=== PATIENT | female | born 1945 | race Caucasian/White ===

== ENCOUNTER 2024-05-02 12:42 | Inpatient (IN) | payer MEDICARE, BC, SELFPAY ==
[2024-04-30 20:22] VITALS: BP 186/85; BMI 31.7
[2024-04-30 20:37] LABS: % Basophils 0.5 % (0-2); % Eosinophils 0.8 % (0-6); % Immature Granulocytes 0.3 % (0-0.5); % Lymphocytes 25.8 % (20.5-51.1); % Monocytes 4.9 % (1.7-9.3); % Neutrophils 67.7 % (42.2-75.2); Absolute Basophils 0.1 10^3/uL (0-0.2); Absolute Eosinophils 0.1 10^3/uL (0-0.7); Absolute Lymphocytes 2.8 10^3/uL (1.2-3.4); Absolute Monocytes 0.5 10^3/uL (0.1-0.6); Absolute Neutrophils 7.4 10^3/uL (1.4-6.5); Hematocrit 44.5 % (37.0-47.0); Hemoglobin 15.3 g/dL (12.0-16.0); Mean Corp Hgb Conc. 34.4 g/dL (33.0-37.0); Mean Corpuscular Hgb 29.4 pg (27.0-31.0); Mean Corpuscular Volume 85.6 fL (81.0-99.0); Mean Platelet Volume 9.4 fL (7.4-10.4); Nucleated Red Blood Cells % 0 %; Platelet Count 230 10^3/uL (130-400); Red Cell Dist. Width 12.8 % (11.5-14.5); White Blood Cell Count 10.9 10^3/uL (4.8-10.8)
[2024-04-30 20:58] LABS: Blood Urea Nitrogen 15 mg/dl (7-17); Calcium 9.4 mg/dl (8.4-10.2); Carbon Dioxide 24 mmol/L (22-30); Chloride 103 mmol/L (98-107); Estimated Creatinine Clearance 47 ml/min; Glucose 139 mg/dl (70-99); Sodium 135 mmol/L (135-145); eGFR > 60.00
[2024-04-30 21:00] VITALS: BP 164/70
--- NOTE | 2024-04-30 21:34 | ED.GENMED ---
History of Present Illness
<Rosio Jones PA-C - Last Filed: 05/01/24 19:30>
General
Chief Complaint: Abdominal Symptoms
Source: patient
Exam Limitations: none
Time Seen by Provider: 04/30/24 21:31
Nursing documentation reviewed up to this point in time: agreed with
History of Present Illness
History of Present Illness:
Patient is an 79-year-old female presenting to the emergency department via EMS due to acute onset nausea and vomiting after dinner this evening. Patient was eating dinner with her daughter and and approximately 5 minutes after the meal
patient started having severe nausea and multiple episodes of vomiting with some associated dizziness. Patient also states that she has had felt unsteady on her feet over the past few days and as if she needed to hold onto conley. Patient's
did not notice any obvious unsteady gait. Patient denies any fevers, chills, abdominal pain, constipation. Patient denies any associated chest pain or shortness of breath. Patient denies any headache.
However�patient does report that she notices intermittently that after meals she has nausea, vomiting, and occasional diarrhea.
Patient does report that she has been under a increased amount of stress recently and is unsure if this may be contributing to symptoms. Patient denies any history of cardiac disease.
Patient lives in [place] and is visiting family currently.
Past History
<Rosio Jones PA-C - Last Filed: 05/01/24 19:30>
Past History
ED Past Medical History: None
ED Past Surgical History: Other (Patient has had moles surgery on the face 5 years ago)
Social History
Personal:
Living: with family
Employment: Retired
Review of Systems
<Rosio Jones PA-C - Last Filed: 05/01/24 19:30>
Review of Systems
Allergies reviewed?: Yes
All Other Systems: ROS reviewed and negative except as documented in HPI and ROS
Phy Exam
<Rosio Jones PA-C - Last Filed: 05/01/24 19:30>
Physical Exam
Physical Exam:
Vitals: Hypertensive, otherwise vital signs stable. Afebrile
General: Patient is well appearing, no acute distress. Nontoxic-appearing
Skin: Warm and dry, no rashes or lesions
Head: Normocephalic, atraumatic
Eyes: Sclera nonicteric. EOMs intact. No nystagmus. Pupils equal round and reactive to light bilaterally
Throat:Protecting airway
Neck: Normal ROM, no cervical spine tenderness, no meningismus
Cardiac: Regular rate and rhythm, no murmurs.
Pulm: Normal respiratory effort, no wheezes, rales, rhonchi heard on exam.
Abdomen: Abdomen soft. Mild right upper quadrant and epigastric tenderness. No CVA tenderness
Extremities: No evidence of cyanosis or edema. Great distal pulses
Neuro: AAOx3. CN II-XII intact. Speech fluid. No focal neurologic deficits. Normal finger-nose. Strength 5 out of 5 in upper and lower extremities. Ataxic gait.
Psychiatric: Normal affect.
Course
<Rosio Jones PA-C - Last Filed: 05/01/24 19:30>
Orders/Labs/Results
Orders:
Orders
04/30/24 20:29
Basic Metabolic Panel Urgent
Complete Blood Count/With Diff Urgent
Lipase Urgent
Comment: ADD ON
04/30/24 21:52
Electrocardiogram (*1) Urgent
Reason for Study: Abdominal Pain
EKG- Treatment ONCE
0.9% Sodium Chloride 1000 ml [Nss] 1,000 ml IV BOLUS
04/30/24 21:58
Add On- LAB Urgent
Tests Added?: lipase
04/30/24 22:09
Comprehensive Metabolic Panel Urgent
04/30/24 22:22
US Abdomen Complete/Upper Urgent
Comment:
Reason For Exam: Right upper quadrant pain, +N, +V
04/30/24 23:37
Urinalysis Reflex To Culture Urgent
Date Specimen was Collected: 04/30/24
Time Specimen was Collected: 23:28
04/30/24 23:40
Troponin I Urgent
05/01/24 00:27
Aspirin Chewable [Low Strength Aspirin] 324 mg PO NOW STA
05/01/24 00:28
CT Head W/o Iv Contrast Urgent
Comment:
Reason For Exam: ataxia
EKG- Treatment ONCE
05/01/24 02:13
Admit/Transfer Patient As Directed
Co-Sign Provider:
Level of Care: Observation services
Assign to:: Telemetry
Physician / Group: Raymond
Diagnosis: Ataxia, Abnormal Troponin
Reason for Telemetry: CVA/TIA
Date to Stop Telemetry: 05/04/24
Time to Stop Telemetry: 11:00
PRN Pain Medication Management As Directed
May give lesser potent ordered pain med per pt: Yes
preference::
Protocol:: Medication orders for pain may be administered in a
manner that supports deferring to patient preference
when the pt is:
- Requesting an ordered lesser potent pain medication.
Least to most potent pain medications are defined
as: acetaminophen < NSAID < tramadol < opioids
(morphine, oxycodone, hydromorphone).
- Requesting a lesser dose of the same medication IF
ORDERED.
- Requesting a less intrusive route of administration
if both routes are prescribed by the provider (PO <
IV).
05/01/24 02:14
Code Status As Directed
Resuscitation Status: Full Code
05/01/24 02:40
Electrocardiogram (*1) Urgent
Reason for Study: Abdominal Pain
05/01/24 02:55
Troponin I Urgent
05/01/24 04:47
Acetaminophen [Tylenol] 650 mg PO Q4HPRN PRN
Albuterol Nebs [Ventolin Nebules] 2.5 mg INH R Q4HPRN PRN
Meclizine [Antivert] 25 mg PO Q8HPRN PRN
Ondansetron Injectable [Zofran] 4 mg IV Q6HPRN PRN
05/01/24 04:47
Activity As Directed
Activity Level: Ambulate
With Assistance
EKG with chest pain [ECG as needed] As Directed
ECG as needed for:: Chest Pain
I/O [Intake/ Output] As Directed
Frequency: Per unit guidelines
Neurological Checks As Directed
Frequency: q4h
Orthostatic Vital Signs As Directed
Orthostatic VS Frequency: BID
Pneumatic Compression Sleeves As Directed
Type: Knee high
Vital Signs As Directed
Frequency: Per unit guidelines
Weight As Directed
Frequency: Daily
Oxygen Therapy [O2 Therapy] [RESP] Routine
Titrate/Wean O2 to maintain O2 sat greater than (%): 94
Ot Eval And Treat Routine
PT Consult [Pt Eval And Treat] Routine
Treatment: Vestibular Eval
Activity Level: Ambulate
With Assistance
DX Deep Vein Thrombosis Video Routine
05/01/24 06:00
EKG [Electrocardiogram (*1)] IN AM
Reason for Study: Chest Pain
Regular
At Your Request: Full Participation
MR Brain Without Contrast IN AM
Comment:
Reason For Exam: Ataxia
Recent pill cam endoscopy?: No
05/01/24 06:28
Basic Metabolic Panel IN AM
Complete Blood Count/No Diff IN AM
TSH Reflex To Free T4 Routine
Troponin I IN AM
05/01/24 08:00
Aspirin Chewable [Low Strength Aspirin] 81 mg PO DAILY
Paroxetine [Paxil] 10 mg PO DAILY
05/04/24 11:00
DC Protocol for Telemetry ONCE
Abnormal Lab Results
04/30/24 04/30/24 04/30/24
20:29 22:09 23:37
WBC 10.9 H 10^3/uL
(4.8-10.8)
Absolute Neuts (auto) 7.4 H 10^3/uL
(1.4-6.5)
Glucose 139 H mg/dl 129 H mg/dl
(70-99) (70-99)
Troponin I
Urine Ketones Trace A
(Negative)
04/30/24 05/01/24
23:40 02:55
WBC
Absolute Neuts (auto)
Glucose
Troponin I 0.077 H* ng/ml 0.171 H* D ng/ml
Urine Ketones
04/30/24 20:29
04/30/24 22:09
Vital Signs
Initial and Last Documented VS:
Initial Vital Signs
Temp Pulse Resp BP Pulse Ox
97.6 F 95 10 186/85 97
04/30/24 20:22 04/30/24 20:22 04/30/24 20:22 04/30/24 20:22 04/30/24 20:22
Last Documented Vital Signs
Temp Pulse Resp BP Pulse Ox
98 F 55 18 129/62 95
05/01/24 16:56 05/01/24 16:56 05/01/24 16:56 05/01/24 16:56 05/01/24 16:56
<Ferny Romo MD - Last Filed: 05/01/24 00:53>
Orders/Labs/Results
Orders:
Orders
04/30/24 20:29
Basic Metabolic Panel Urgent
Complete Blood Count/With Diff Urgent
Lipase Urgent
Comment: ADD ON
04/30/24 21:52
Electrocardiogram (*1) Urgent
Reason for Study: Abdominal Pain
EKG- Treatment ONCE
0.9% Sodium Chloride 1000 ml [Nss] 1,000 ml IV BOLUS
04/30/24 21:58
Add On- LAB Urgent
Tests Added?: lipase
04/30/24 22:09
Comprehensive Metabolic Panel Urgent
04/30/24 22:22
US Abdomen Complete/Upper Urgent
Comment:
Reason For Exam: Right upper quadrant pain, +N, +V
04/30/24 23:37
Urinalysis Reflex To Culture Urgent
Date Specimen was Collected: 04/30/24
Time Specimen was Collected: 23:28
04/30/24 23:40
Troponin I Urgent
05/01/24 00:27
Aspirin Chewable [Low Strength Aspirin] 324 mg PO NOW STA
05/01/24 00:28
CT Head W/o Iv Contrast Urgent
Comment:
Reason For Exam: ataxia
EKG- Treatment ONCE
05/01/24 02:13
Admit/Transfer Patient As Directed
Co-Sign Provider:
Level of Care: Observation services
Assign to:: Telemetry
Physician / Group: Raymond
Diagnosis: Ataxia, Abnormal Troponin
Reason for Telemetry: CVA/TIA
Date to Stop Telemetry: 05/04/24
Time to Stop Telemetry: 11:00
PRN Pain Medication Management As Directed
May give lesser potent ordered pain med per pt: Yes
preference::
Protocol:: Medication orders for pain may be administered in a
manner that supports deferring to patient preference
when the pt is:
- Requesting an ordered lesser potent pain medication.
Least to most potent pain medications are defined
as: acetaminophen < NSAID < tramadol < opioids
(morphine, oxycodone, hydromorphone).
- Requesting a lesser dose of the same medication IF
ORDERED.
- Requesting a less intrusive route of administration
if both routes are prescribed by the provider (PO <
IV).
05/01/24 02:14
Code Status As Directed
Resuscitation Status: Full Code
05/01/24 02:40
Electrocardiogram (*1) Urgent
Reason for Study: Abdominal Pain
05/01/24 02:55
Troponin I Urgent
05/01/24 04:47
Acetaminophen [Tylenol] 650 mg PO Q4HPRN PRN
Albuterol Nebs [Ventolin Nebules] 2.5 mg INH R Q4HPRN PRN
Meclizine [Antivert] 25 mg PO Q8HPRN PRN
Ondansetron Injectable [Zofran] 4 mg IV Q6HPRN PRN
05/01/24 04:47
Activity As Directed
Activity Level: Ambulate
With Assistance
EKG with chest pain [ECG as needed] As Directed
ECG as needed for:: Chest Pain
I/O [Intake/ Output] As Directed
Frequency: Per unit guidelines
Neurological Checks As Directed
Frequency: q4h
Orthostatic Vital Signs As Directed
Orthostatic VS Frequency: BID
Pneumatic Compression Sleeves As Directed
Type: Knee high
Vital Signs As Directed
Frequency: Per unit guidelines
Weight As Directed
Frequency: Daily
Oxygen Therapy [O2 Therapy] [RESP] Routine
Titrate/Wean O2 to maintain O2 sat greater than (%): 94
Ot Eval And Treat Routine
PT Consult [Pt Eval And Treat] Routine
Treatment: Vestibular Eval
Activity Level: Ambulate
With Assistance
DX Deep Vein Thrombosis Video Routine
05/01/24 06:00
EKG [Electrocardiogram (*1)] IN AM
Reason for Study: Chest Pain
Regular
At Your Request: Full Participation
MR Brain Without Contrast IN AM
Comment:
Reason For Exam: Ataxia
Recent pill cam endoscopy?: No
05/01/24 06:28
Basic Metabolic Panel IN AM
Complete Blood Count/No Diff IN AM
TSH Reflex To Free T4 Routine
Troponin I IN AM
05/01/24 08:00
Aspirin Chewable [Low Strength Aspirin] 81 mg PO DAILY
Paroxetine [Paxil] 10 mg PO DAILY
05/04/24 11:00
DC Protocol for Telemetry ONCE
Abnormal Lab Results
04/30/24 04/30/24 04/30/24
20:29 22:09 23:37
WBC 10.9 H 10^3/uL
(4.8-10.8)
Absolute Neuts (auto) 7.4 H 10^3/uL
(1.4-6.5)
Glucose 139 H mg/dl 129 H mg/dl
(70-99) (70-99)
Troponin I
Urine Ketones Trace A
(Negative)
04/30/24 05/01/24
23:40 02:55
WBC
Absolute Neuts (auto)
Glucose
Troponin I 0.077 H* ng/ml 0.171 H* D ng/ml
Urine Ketones
04/30/24 20:29
04/30/24 22:09
Vital Signs
Initial and Last Documented VS:
Initial Vital Signs
Temp Pulse Resp BP Pulse Ox
97.6 F 95 10 186/85 97
04/30/24 20:22 04/30/24 20:22 04/30/24 20:22 04/30/24 20:22 04/30/24 20:22
Last Documented Vital Signs
Temp Pulse Resp BP Pulse Ox
98 F 55 18 129/62 95
05/01/24 16:56 05/01/24 16:56 05/01/24 16:56 05/01/24 16:56 05/01/24 16:56
<Rosio Jones PA-C - Last Filed: 05/01/24 19:30>
MDM/Problems Addressed
Differential Diagnosis Includes:
Not limited to: dehydration, hyponatremia, gastritis, gastroenteritis, GERD, biliary colic, cholecystitis, Vertigo, CVA, ACS
MDM/Problems Addressed:
Patient is a healthy 79-year-old female presenting via EMS for acute onset nausea, vomiting, and dizziness after dinner this evening. Patient denies any true abdominal pain or associated fever, chills. Does have intermittent nausea and vomiting
after meals occasionally. Patient does report unsteadiness on her feet over the past few days. No headache, dysarthria, visual changes, weakness, numbness/tingling in lower extremities. Patient hypertensive on arrival, otherwise vital signs
stable. Physical exam as above. Patient is relatively well-appearing, in no apparent distress. She did receive 4 of Zofran during by EMS without any subsequent episodes of vomiting. Patient no longer complaining of dizziness. Heart regular rate
and rhythm. Lungs clear bilaterally. She does have some mild tenderness in her right upper quadrant epigastric region without any rebound tenderness or guarding. No focal neurologic deficits. Strength and sensation fully intact in upper and
lower extremities. Normal [id number]. Speech fluid. Labs were initiated in triage which show no clinically significant abnormalities. Given postprandial nausea, vomiting and abdominal tenderness�will check abdominal ultrasound to rule out
gallbladder etiology. Will give IV fluids. Will check EKG and troponin.
Abdominal ultrasound shows no acute abnormalities. EKG without acute ischemic changes. Patient does report symptomatic improvement following IV fluids while lying in bed although when she got up to use the bathroom clearly had ataxia while
walking. Clearly not at baseline. Will check head CT to rule out CVA.
Troponin values still pending. Troponin resulted which is elevated to 0.077. Patient was given 324 aspirin. Plan for admission to hospitalist following head CT.
Update: Head CT without any acute abnormalities. Given persistent ataxia and elevated troponin will be admitted to hospitalist for further stroke workup and troponin trending. Discussed with hospitalist. Accepted to hospitalist service. Patient
seen with attending physician.
Chronic conditions affecting care:
N/A
Acute Exacerbation and/or Progression of Chronic Illness:
N/A
<Rosio Jones PA-C - Last Filed: 05/01/24 19:30>
*Radiology
Radiology exam reviewed: radiology read reviewed
*Pulse Oximetry
Patient hypoxic: no
*EKG
Interpreted by ED Provider?: Yes
EKG Intrepretation Date: 05/01/24
Interpretation: normal
Comparison EKG: no comparison EKG present
Heart Rate: 63
Rate: normal
Rhythm: sinus
Ischemia: no ischemia
*Electrical Wiring Lineman Interpretation
Rate: normal
Interpretation: normal
Heart Rate: 70
*Critical Care Note
Total Time (30-74mins, 75-104mins- exclusive of procedures): Not Applicable
<Rosio Jones PA-C - Last Filed: 05/01/24 19:30>
Patient Management
Discussion with other providers: Hospitalist
Escalation/DeEscalation of care consider admission/obs:
Admit for further trending of troponins and stroke workup
ED Attending Note
<Rosio Jones PA-C - Last Filed: 05/01/24 19:30>
-
Portions of this chart may have been created with voice recognition software.� Occasional wrong word or��sound alike� substitutions may have occurred due to the inherent limitations of voice recognition software.
<Ferny Romo MD - Last Filed: 05/01/24 00:53>
ED Attending Note
Patient seen and examined by attending physician: Yes
ED Attending Note:
I have seen and evaluated the patient with a [id number] encounter. I have spoken to the advance practicer provider and involved in the medical history, the physical exam, medical decision making.
Evaluation and management service: agree unless noted differently below.
Results interpretation: agree unless noted differently below.
Focused HPI: 79-year-old female presents for evaluation of dizziness. Patient says she woke up this morning feeling slightly less steady on her feet than usual. Tonight ate dinner and shortly after finishing had acute onset of room spinning
sensation associated with nausea and vomiting. EMS called to bring patient to hospital. She says room spinning sensation has improved but she still feels slightly off balance. Still has some nausea no additional vomiting after Zofran from EMS.
No chest pain or abdominal pain reported. No focal weakness or numbness in extremities, no speech or vision issues.
Physical exam: Awake alert not in distress. Hypertensive but otherwise normal vitals. Pupils equal round reactive to light bilaterally, extraocular movements intact with no reproducible nystagmus. Negative Leonardo-Hallpike. Cranial nerves intact 2
through 12, no limb ataxia, motor and sensory function intact in upper and lower extremities. No cardiac rubs gallops or murmurs and lungs are clear to auscultation bilaterally. Abdomen nontender.
Medical Decision Makin-year-old female presents with dizziness/disequilibrium started mildly this morning, was more intense after dinner. Symptoms have improved but still feeling off balance. Exam as above. Check labs including a CBC and a
CMP. Will check EKG and troponin. Will check upper abdominal ultrasound given postprandial nausea and vomiting but no abdominal pain and no tenderness on my assessment. Will check CT head. Reassess after the above.
Labs reviewed: CBC unremarkable, CMP no clinically significant abnormalities. Upper abdominal ultrasound was negative. EKG shows sinus rhythm no STEMI. She did have a marginally elevated troponin which we will continue to trend out. Somewhat
lower suspicion that this is cardiac. Awaiting CT head. Likely admission for trending of troponins and further evaluation to rule out stroke.
Discharge Plan
Departure
Patient Disposition: Admit
Date of Disposition: 05/01/24
Time of Disposition: 01:33
Presentation/result/management discussed w/ accepting MD/DO: Hospitalist
Discharge Problem:
Elevated troponin, Ataxia
Interventions
Interventions:
*Risk Screen - Suicide Last Done: 04/30/24 20:22
*General Assessment Last Done: 04/30/24 20:22
*Neglect/Abuse Screening Last Done: 04/30/24 20:22
ED- Fall Risk Assessment Last Done: 04/30/24 20:27
*ED COVID-19 Vaccine History Last Done: 04/30/24 20:22
*Nursing Disposition Last Done: 05/01/24 04:18
IG-Wzieja-Ygkmyebohg Assessment Last Done: 04/30/24 20:27
Discharge Date and Time
Discharge Date/Time: 05/01/24 04:19
[2024-04-30 22:00] VITALS: BP 158/63
[2024-04-30] MEDS: NSS 1000 IV (22:10)
[2024-04-30 22:20] LABS: Lipase 107 U/L (23-300)
[2024-04-30 22:30] LABS: ALT (SGPT) 17 U/L (0-35); AST (SGOT) 27 U/L (14-36); Alkaline Phosphatase 91 U/L (38-126); Blood Urea Nitrogen 15 mg/dl (7-17); Calcium 9.1 mg/dl (8.4-10.2); Carbon Dioxide 28 mmol/L (22-30); Chloride 103 mmol/L (98-107); Estimated Creatinine Clearance 47 ml/min; Glucose 129 mg/dl (70-99); Potassium 4.1 mmol/L (3.5-5.1); Sodium 135 mmol/L (135-145); Total Bilirubin 0.9 mg/dl (0.2-1.3); Total Protein 6.5 g/dl (6.3-8.2); eGFR > 60.00
[2024-04-30 23:37] VITALS: BP 159/74
[2024-04-30 23:50] LABS: Urine Albumin Negative (Neg - Trace); Urine Bilirubin Negative (Negative); Urine Character Clear (Clear); Urine Color Yellow; Urine Glucose Negative (Negative); Urine Ketone Trace (Negative); Urine Leukocyte Negative (Negative); Urine Nitrite Negative (Negative); Urine Occult Blood Negative (Negative); Urine Specific Gravity 1.005 (<1.030); Urine Urobilinogen Negative (Neg - 1+)
[2024-05-01] VITALS (14 sets, daily range): BP systolic 117–171; BP diastolic 54–86; PULSE 62–77; O2SAT 95–96; BMI 29.9
[2024-05-01 00:20] LABS: Troponin I 0.077 ng/ml
[2024-05-01] MEDS: LOW STRENGTH ASPIRIN 324 MG PO (00:37)
--- NOTE | 2024-05-01 02:17 | HPS.HSE ---
Family Physician
-
Family Physician: * NONE
Chief Complaint
-
Dizziness
History of Present Illness
Patient is an 79y F with PMH significant for anxiety / depression who presents to ED complaining of dizziness. 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 This passed quickly. Today
she traveled down from [place] with her to visit family. She again had similar symptoms of unsteadiness while walking around - but hoped that they would again pass. Her symptoms unfortunately persisted - though she had no vertigo,
nausea, headache, etc.
Patient had dinner this evening and then developed sudden onset of room spinning sensation and nausea with dry heaves.
She presented to the ED for further evaluation.
Patient states that her symptoms have gradually improved since arrival in the ED - following treatment with antiemetics.
Patient denies any prior history of similar episodes.
She has no prior history of heart disease, stroke, etc.
Patient denies any numbness, tingling, focal weakness, headache or vision changes.
Medical History
Past Medical History
Past Medical History: Reports Other
Additional Past Medical History:
Anxiety / Depression
Skin Cancer
Past Surgical History: Reports Other
Additional Past Surgical History:
Mohs Surgery
Social History
Tobacco: Non-smoker
Alcohol: Occasional
Personal:
Living: With Family
Family History
Family History: Other (Mother: Longevity Father: CAD, DM)
Allergies / Home Medications
Allergies reflects when Allergies were last updated in [facility].
Home Medications with original date entered in [facility]
Allergy/Medication List:
Allergies
Allergy/AdvReac Type Severity Reaction Status Date / Time
No Known Allergies Allergy Verified 04/30/24 20:37
Home Medications
albuterol sulfate 90 mcg/actuation aerosol inhaler (Proventil HFA) 1 - 2 puff inhalation Q4HPRN PRN prn for wheezing ##1 01/07/11
paroxetine HCl 10 mg tablet 10 mg PO DAILY 01/07/11
Review of Systems
-
History Source: Patient
A 12 point ROS was completed and negative except as noted: Yes
Constitutional: Denies Fever, Fatigue or Chills
EENT: Denies Sore Throat or Runny Nose
Respiratory: Denies Cough or Trouble Breathing
Cardiac: Denies Chest Pain, Palpitations or Syncope
Abdomen/GI: Reports Nausea and Vomiting; Denies Abdominal Pain or Diarrhea
: Denies Dysuria, Frequency or Flank Pain
Musculoskeletal: Denies Joint Pain or Edema
Neurological: Reports Dizzy; Denies Headache, Weakness or Numbness
Psych: Denies Depression or Anxiety
Physical Exam
Vital Signs
Vital Signs
Temp Pulse Resp BP Pulse Ox
97.6 F 76 19 141/72 92
04/30/24 20:22 05/01/24 01:48 05/01/24 01:48 05/01/24 01:00 05/01/24 01:48
Physical Exam
General: Other (79y F in no acute distress.)
HEENT: Moist mucous membranes, PERRLA and Other (No nystagmus.)
Respiratory: Clear; No Wheezes, Rales or Rhonchi
Cardiac: S1/S2 and Regular Rhythm; No Murmur
GI: Soft, Non Tender, Non Distended and Normal Bowel Sounds
Musculoskeletal: No Clubbing, No Cyanosis and No Edema
Neuro: AO x 3 and Other (Normal awwkhn-fx-wead. No focal motor weakness appreciated.)
Psych: No Anxious or Depressed
Laboratory Results
-
04/30/24 20:29
04/30/24 22:09
Laboratory Results
Total Bilirubin 0.9 mg/dl (0.2-1.3) 04/30/24 22:09
AST 27 U/L (14-36) 04/30/24 22:09
ALT 17 U/L (0-35) 04/30/24 22:09
Alkaline Phosphatase 91 U/L (38-126) 04/30/24 22:09
Troponin I 0.077 ng/ml H* 04/30/24 23:40
Lipase Cancelled 04/30/24 21:52
Impression/Plan
-
A/P: Patient is an 79y F with PMH significant for depression who presents to ED for evaluation of ataxia, N/V.
Ataxia with N/V
- Observe overnight for further evaluation and treatment.
- Symptoms sound most c/w vertigo.
- Continue meclizine PRN / antiemetics PRN.
- PT eval in the AM.
- CT unremarkable in the ED - will check MRI in AM for completeness.
- Follow for any new / worsening symptoms, or neurologic changes.
- Continue ASA daily for now.
Abnormal Troponin
- Unclear relevance / etiology.
- No prior values for comparison.
- Patient has no chest pain, dyspnea, jaw pain, etc.
- EKG is entirely unremarkable.
- Follow troponin for changes.
- Consider Cardio eval if troponin rises or new symptoms develop.
Anxiety / Depression
- Stable. Continue paroxetine.
DVT Prophylaxis: SCDs
Code Status: Full
[2024-05-01 03:48] LABS: Troponin I 0.171 ng/ml
--- NOTE | 2024-05-01 05:03 | PTCARENOTE ---
Received pt from ED. Pt unsteady to transfer off stretcher to scale and requires assist of two . PT AAO*3, denies pain, Vital signs stable. Pt oriented to room. call huston within reach. All admission questions completed along with assessment. Pt
updated with plan for today.
[2024-05-01 06:48] LABS: Hematocrit 40.7 % (37.0-47.0); Hemoglobin 13.7 g/dL (12.0-16.0); Mean Corp Hgb Conc. 33.7 g/dL (33.0-37.0); Mean Corpuscular Volume 86.2 fL (81.0-99.0); Mean Platelet Volume 9.6 fL (7.4-10.4); Platelet Count 212 10^3/uL (130-400); Red Blood Cell Count 4.72 10^6/uL (4.20-5.40); Red Cell Dist. Width 12.9 % (11.5-14.5); White Blood Cell Count 10.1 10^3/uL (4.8-10.8)
[2024-05-01 07:07] LABS: Blood Urea Nitrogen 14 mg/dl (7-17); Carbon Dioxide 30 mmol/L (22-30); Chloride 107 mmol/L (98-107); Estimated Creatinine Clearance 45 ml/min; Glucose 103 mg/dl (70-99); Potassium 4.7 mmol/L (3.5-5.1); Sodium 138 mmol/L (135-145); eGFR > 60.00
[2024-05-01 07:15] LABS: Troponin I 0.264 ng/ml
[2024-05-01 07:38] LABS: TSH Reflex To Free T4 0.95 uIU/ml (0.47-4.68)
--- NOTE | 2024-05-01 07:52 | CON.CAR ---
Addendum entered and electronically signed by Jim Silva MD 05/01/24 13:00:
I saw and examined the patient.
The SUPERVISOR [employer]'s note was reviewed and I agree with the note.
79-year-old woman visiting from [place] who is accompanied by her daughter who lives in [place]. Patient had some intermittent episodes of feeling off balance and having room spinning yesterday and then developed a more persistent and severe
episode with sensation of room spinning nausea and vomiting. Symptoms were persistent in ambulance and still had some symptoms in the emergency department. Patient was noted to have hypertension during that acute episode which is subsequently
resolved no known history of coronary disease no chest pain or shortness of breath. Troponins were checked in ER which is trended up to a peak of 0.264. Exact cause of troponin rise not entirely clear. Possible type II DC in the setting of severe
physical distress and severe hypertension. Echocardiogram shows preserved left ventricular function but there is a mid inferolateral wall motion abnormality. Patient with no prior study for comparison and no known history of coronary disease.
Studies thus far do not show evidence of CVA. Including MRI.
-Aspirin
-Check troponins through peak
-Will await additional input from Dr. Fofana regarding the etiology of her initial presentation. Will see if this is felt just to be vertigo or if there are concerns regarding any additional conditions contributing to this. Additional
recommendations based on this evaluation.
-Considering all the above would recommend that the patient not be discharged until she has additional cardiac testing. Will be reviewing invasive versus noninvasive testing with primary team and patient.
Original Note:
Consultation
Consultation Request
Date/Time Consultation Requested: 05/01/24 4:45a
Date/Time Consultation Performed: 05/01/24 7:45a
Requesting Provider: Dr. Andrade
Performing Provider: MANJU Prater for Dr. Silva
Reason for Consultation: abnormal troponin
Medical History
-
Chief Complaint: ataxia, nausea/vomiting
History of Present Illness:
Mrs. Gould is an 79 yo female with anxiety/depression and h/o skin cancer, who is visiting from [place], who presents to the ER with c/o ataxia, nausea/vomiting. She states standing from sitting position on Saturday and felt off balance with her
gait, it lasted for seconds then resolved. This occurred again yesterday morning. Then last night after dinner she stood up and had acute vertigo with the room spinning, then nausea and vomiting. She was very weak and her daughter called EMS who
brought her to the ER. Symptoms improved with Zofran. She denies any symptoms currently. We are consulted because she has an abnormal troponin levels; 0.077, 0.171, 0.264. She denies any cardiac symptoms now or previously. She had an MRI this
morning.
Past Medical History
Past Medical History: Other (as above)
Social History
Tobacco: Non-Smoker
Alcohol: Occasional (1 drink a week)
Personal:
Living: With Family
Employment: Retired
Family History
Family History: Early CAD (father had DC in his 50s, ETOH abuse and smoker)
Allergies / Home Medications
Allergy/AdvReac Type Severity Reaction Status Date / Time
No Known Allergies Allergy Verified 04/30/24 20:37
�Medication �Instructions �Recorded �Confirmed �Type
albuterol sulfate 90 mcg/actuation 1 - 2 puff inhalation Q4HPRN PRN 01/07/11 05/01/24 Rx
aerosol inhaler (Proventil HFA) prn for wheezing ##1
paroxetine HCl 10 mg tablet 10 mg PO DAILY 01/07/11 05/01/24 History
Review of Systems
-
History Source: Patient
All other systems: Negative unless noted
Physical Exam
Vital Signs
Temp Pulse Resp BP Pulse Ox
98.1 F 68 16 165/79 94
05/01/24 04:33 05/01/24 04:33 05/01/24 04:33 05/01/24 04:33 05/01/24 04:33
Lab Results
05/01/24 06:28
05/01/24 06:28
Troponin I 0.264 ng/ml H* D 05/01/24 06:28
Physical Exam
General: Well Developed, Well Nourished and No Apparent Distress
HEENT: Normocephalic, Anicteric and Moist Mucous Membranes
Respiratory: Clear and Non Labored Respirations
Cardiac: S1/S2 and Regular Rhythm
Breast: Deferred by me
GI: Soft, Non Tender, Non Distended and Normal Bowel Sounds
Rectal: Deferred by Provider
Genito-urinary: No Costovertebral Tender
Musculoskeletal: No Clubbing, No Cyanosis and No Edema
Skin: Warm and Dry
Neuro: AO x 3
Hematologic/Lymphatic: No Lymphadenopathy
Psych: Calm
Impression / Plan
-
Abnormal troponin - in the setting of acute vomiting and HTN.
- denies any anginal symptoms.
- EKG NSR/SB w/o acute ischemia.
- check echo today.
- trend troponin to peak.
- ASA 81mg daily.
Elevated BP w/o diagnosis of HTN - during hospitalization.
- monitor.
Vertigo/ataxia/vomiting - acute.
- per hospitalist.
- head CT, abd u/s and brain MRI all unremarkable.
Anxiety/depression - stable on Paroxetine.
Data Reviewed
-
EKG: Tracing Personally Visualized and interpreted (NSR 60s, sinus bradycardia 57 bpm)
CT Scan: Report Reviewed by me (head ct: no acute abnormalities; diffuse cortical atrophy with nonspecific white matter changes)
Ultrasound: Report Reviewed by me (abd u/s: no evidence for cholelithiasis, hepatic steatosis, slight dilatation of the common bile duct at 8 mm in diameter.)
Labs: Labs Reviewed by me
Old Records: Reviewed
--- NOTE | 2024-05-01 08:50 | W.PN.HOSP.TC ---
Today's Communication/Plan
-
Echo, MRI
Assessment / Plan
Assessment / Plan
A/P: Patient is an 79y F with PMH significant for depression who presents to ED for evaluation of ataxia, N/V.
Ataxia with N/V
Symptoms suggestive of vertigo upon arrival. Today patient denies dizziness or room spinning, states unsteadiness of her feet
CT unremarkable in the ED
EKG unremarkable
No focal neurological deficits on PE
- For echo and MRI today
- Continue ASA daily for now.
Abnormal Troponin
- Unclear relevance / etiology. 0.077-->0.171-->0.264
- No prior values for comparison.
- Patient has no chest pain, dyspnea, jaw pain, etc.
- EKG is entirely unremarkable.
- Appreciate cardiology
- Echo today
Anxiety / Depression
- Stable. Continue paroxetine.
DVT Prophylaxis: SCDs
Code Status: Full
Anticipated Discharge: Within 24 hours
Subjective/Interval History
-
Date of Service: May 01, 2024
Patient denies dizziness and room-spinning sensation. She states she is still somewhat unstable on her feet.
Was ble to use bathroom on her own without assistance
Objective Data
-
Labs:
Laboratory Results
04/30/24 04/30/24 05/01/24
20:29 22:09 06:28
WBC 10.1
Hgb 13.7
Hct 40.7
Plt Count 212
Sodium 135 135 138
Potassium 4.1 4.7
Chloride 103 103 107
Carbon Dioxide 24 28 30
BUN 15 15 14
Creatinine 0.9 0.9 0.9
Glucose 139 H 129 H 103 H
Calcium 9.4 9.1 9.0
Total Bilirubin Cancelled 0.9
AST Cancelled 27
ALT Cancelled 17
Alkaline Phosphatase Cancelled 91
Vital Signs:
Vital Signs
Temp Pulse Resp BP Pulse Ox
98.1 F 59 12 125/64 92
05/01/24 07:30 05/01/24 07:30 05/01/24 07:30 05/01/24 07:30 05/01/24 07:30
Review of Systems
-
History Source: Patient
Constitutional: Denies Fever
Respiratory: Denies Cough or Trouble Breathing
Cardiac: Denies Chest Pain or Palpitations
Abdomen/GI: Denies Abdominal Pain
Neuro: Reports Other (no sensory loss ); Denies Dizzy or Weakness
Physical Exam
-
HEENT: Normocephalic, Atraumatic and Moist Mucous Membranes
Respiratory: Clear to Auscultation and Non Labored Respirations; Negative Wheezes, Rales, Rhonchi or Crackles
Cardiac: Regular Rhythm and S1/S2; Negative Murmur, Rub or Calf Tenderness
GI: Soft, Nontender, Nondistended and Normal Bowel Sounds
Musculoskeletal: No Clubbing, No Cyanosis and No Edema
Skin: Warm and Dry
Neuro: Awake, Alert, Oriented, No Motor Deficits, Nonfocal/Grossly Intact, No Sensory Deficits and Other (mild swaying upon rhpomberg test, no falls)
Psych: Calm
[2024-05-01] MEDS: LOW STRENGTH ASPIRIN 81 MG PO (10:07)
[2024-05-01] MEDS: PAXIL 10 MG PO (10:07)
[2024-05-01 12:29] LABS: Troponin I 0.189 ng/ml
--- NOTE | 2024-05-01 15:18 | W.PN.UPDATE ---
Update Note
Progress Note Update
I saw and evaluated the patient. I reviewed the resident�s note and agree with findings and plan as documented in the resident�s note.
Patient with acute onset of episodic vertigo.
It started initially with a sense of imbalance when she got out of bed 2 mornings before. It happened again yesterday morning. But later she started to have acute spinning sensation of her surroundings followed by nausea vomiting and hence
presented to the hospital. Ever since that episode of vertigo she has been fine without vertigo symptoms but she had a little bit of unsteadiness on feet but also feels that is improving. She was able to walk to the bathroom. No tinnitus or
hearing impairment. No prior history of strokes.
MRI of the brain today was negative for acute stroke. She remembers having episode similar to this 2 years ago.
[place]-Hallpike was positive for symptoms as well as nystagmus when turning to the right.
Clinical scenario suggestive of BPPV for the right posterior canal.
Best possible treatment is vestibular therapy. She could try Antivert prn .
She could go home from it after PT eval.
Positive trops in indeterminate range and asymptmoatic. But pt has WMA. cw tx eval per cardiology. If no plan for inpt eval will dc home.
[facility] cardiology -they are going to see the patient this afternoon.
Discussed with the daughter and went over the diagnosis and treatments for BPPV. Await the cardiology input.
Total time spent on today's encounter was 52 minutes which included time spent in counseling the patient/family regarding diagnosis and treatment plan as listed above, goals of care, and symptom management. Case was discussed with nursing staff,
specialists. All labs and imaging personally reviewed by me. Remainder the time spent in detailed review of previous records, lab data, imaging, and other medical provider documentation.
--- NOTE | 2024-05-01 16:39 | ITS.CL.CATH ---
Finance And Administration Manager - Catheterization
Cardiac Catheterization
Procedure Report:
CARDIAC CATHETERIZATION REPORT
Date of Procedure: 05/01/2024
Referring: Jim Silva MD
Indication: Mildly elevated troponin with wall motion abnormality on echo
HEMODYNAMIC DATA
AO: 156/74
LV: 156/15
LEFT VENTRICULOGRAPHY: Focal lateral wall motion abnormality with overall preserved systolic function with EF 57%
CORONARY ANGIOGRAPHY
Dominance: Right
Left Main: Normal
LAD: Normal
Circumflex: Normal
RCA: Normal
Closure Device: 6 [place] Angio-Seal RFA. Of note we were able to access the right radial artery twice but unable to pass a soft wire more than several centimeters. Accordingly, we converted to a femoral approach.
Radiation (mGy): 195
DAP (cm2.Gy): 17.4
Fluoroscopy time: 1.6 minutes
CONCLUSIONS
1: Systemic hypertension
2: Focal lateral wall motion abnormality of unclear significance with EF 57%. I see no evidence of SCAD
3. Normal coronary arteries
Copy to: Jim Silva MD
Bg Ibarra MD, [facility], [facility]
[2024-05-02 03:00] VITALS: BP 110/46
[2024-05-02 06:00] VITALS: BMI 29.6
[2024-05-02 07:15] VITALS: BP 106/58; BP 121/62; BP 124/59; PULSE 54; PULSE 63; PULSE 70
--- NOTE | 2024-05-02 07:23 | W.PN.CD ---
Today's Communication / Plan
-
Cardiac catheterization site is fine. Overall patient's condition appears to be stable for discharge from my standpoint
Continue aspirin 81 mg a day
I have recommended additional cardiology follow-up. Patient lives out of the area. She will call for a visit with the group that her sees in [place].
Impression / Plan
-
Abnormal troponin - in the setting of acute vomiting and HTN.
-Troponin peak of 0.2. May be type II related to severe physical stress. Patient had issues with vertigo with severe symptoms nausea and was reported to have severe hypertension. Cardiac catheterization with no evidence of significant coronary
artery disease. Would recommend that patient remains on aspirin 81 mg a day.
.
Inferolateral hypokinesis. Area of mid inferolateral hypokinesis noted on echo. Catheterization without significant coronary disease. Exact etiology unclear. Overall heart function preserved. No additional changes in treatment at this time.
.
Elevated BP w/o diagnosis of HTN - during hospitalization.
- monitor.
Vertigo/ataxia/vomiting -
-neurowork-up including MRI unremarkable. [place] to be vertigo. Plan for vestibular therapy. Outpatient follow-up as recommended by primary team
Anxiety/depression - stable on Paroxetine.
Physical Exam
Vital Signs/Labs
Vital Signs
Temp Pulse Resp BP Pulse Ox
98.8 F 54 18 110/46 95
05/02/24 03:00 05/02/24 03:00 05/02/24 03:00 05/02/24 03:00 05/02/24 03:00
05/01/24 05/02/24 05/03/24
06:59 06:59 06:59
Actual Weight 71.753 kg 70.931 kg
05/01/24 06:28
05/01/24 06:28
LAB Results
04/30/24 05/01/24 05/01/24
23:40 02:55 06:28
Troponin I 0.077 H* 0.171 H* D 0.264 H* D
05/01/24
11:41
Troponin I 0.189 H* D
Physical Exam
Constitutional: No acute distress
Cardiovascular: Rhythm & rate is regular
Respiratory: Respiratory effort normal
GI: Soft
Neuro/Psych: Alert
Data Reviewed
-
Date of Service: May 02, 2024
Medical Decision Making: Reviewed Test Results
Echo: Report Reviewed by me
Medical Tests (PFT, Pathology etc): Report Reviewed by me
Labs: Labs Reviewed by me
[2024-05-02 07:25] VITALS: BP 122/59
--- NOTE | 2024-05-02 07:59 | PTCARENOTE ---
Pt aaox3 able to make her needs known. Denies of any pain. resting comfortably,oob with 1 person assist, pt states her dizziness is only at times. Pt standby assist. Pt cath site is intact with good circulation.Plan of care continued.
[2024-05-02] MEDS: PAXIL 10 MG PO (08:31)
--- NOTE | 2024-05-02 09:41 | W.PN.HOSP.TC ---
Today's Communication/Plan
-
Patient's cause of vertigo was concluded to be due to benign positional vertigo. Patient is aware of treatment and has been advised to follow-up with PT and continue to take Antivert as needed. Cardiac catheterization showed no evidence of
significant coronary artery disease. Cardiology recommended that the patient remain on aspirin 81 mg a day.
Assessment / Plan
Assessment / Plan
A/P: Patient is an 79y F with PMH significant for depression who presents to ED for evaluation of ataxia, N/V.
Ataxia with N/V
Symptoms suggestive of vertigo upon arrival. Today patient denies dizziness or room spinning, states unsteadiness of her feet
- CT unremarkable in the ED
- EKG unremarkable
- No focal neurological deficits on PE
- no acute intracranial abnormality noted on MRI
- Continue ASA daily for now.
Abnormal Troponin
- Unclear relevance / etiology. 0.077-->0.171-->0.264
- No prior values for comparison.
- Patient has no chest pain, dyspnea, jaw pain, etc.
- EKG is entirely unremarkable.
- Appreciate cardiology
- Echo - Echo conducted on 05/01 showed an overall preserved left ventricular function, mid inferior lateral wall hypokinesis with preserved left ventricular function, estimated ejection fraction from 55 to 60%, mild mitral regurgitation, mild
tricuspid regurgitation
Right Upper Quadrant Pain: Resolved
-Ultrasound conducted on 04/30 showed no evidence of cholelithiasis, no hepatic steatosis, and slight dilatation of the common bile duct.
Anxiety / Depression
- Stable. Continue paroxetine.
DVT Prophylaxis: SCDs
Code Status: Full
Anticipated Discharge: Today
Subjective/Interval History
-
Date of Service: May 02, 2024
Met with patient at the bedside. She is doing much better today and is pleased with the plan of care moving forward. She is happy to find out what specifically caused her vertigo and knows what to do moving forward in order to help alleviate her
dizziness. Patient was also pleased with the results of her catheterization and believes that she is ready to go home today.
Objective Data
-
Vital Signs:
Vital Signs
Temp Pulse Resp BP Pulse Ox
97.3 F 54 16 122/59 95
05/02/24 07:25 05/02/24 07:25 05/02/24 07:25 05/02/24 07:25 05/02/24 07:25
Review of Systems
-
History Source: Patient
All other systems: Reviewed and negative
Physical Exam
-
General: Well Developed, Well Nourished, No Apparent Distress and Comfortable
HEENT: Normocephalic, Atraumatic and Moist Mucous Membranes
Respiratory: Clear to Auscultation
Cardiac: Regular Rhythm and S1/S2
Breast: Deferred by me
GI: Soft, Nontender, Nondistended and Normal Bowel Sounds
Rectal: Deferred by Provider
Genito-urinary: Deferred by me
Musculoskeletal: No Clubbing, No Cyanosis and No Edema
Skin: Warm and Dry
Neuro: Nonfocal/Grossly Intact
Psych: Calm
[2024-05-02] MEDS: LOW STRENGTH ASPIRIN 81 MG PO (09:47)
[2024-05-02 10:08] VITALS: BP 117/64; PULSE 60
[2024-05-02 11:35] VITALS: BP 114/61
--- NOTE | 2024-05-02 11:37 | W.DCSUMMARY ---
Discharge Summary
Discharge Data
Date of Admission: 05/02/24
Date of Discharge: 05/02/24
-
Pending Results: No
Hospital Course
Patient is an 79-year-old female with a past medical history significant for anxiety/depression who presented to [facility] emergency department complaining of dizziness. Patient stated that she had a brief period of unsteady gait similar to
'walking like a drunken collections analyst' the day before she presented. This feeling subsided quickly. On the day of her presentation to the emergency department she traveled down from [place] with her to visit family and again had similar
symptoms of unsteadiness while walking around. She hoped that the symptoms would again pass but unfortunately they persisted but she had no symptoms of vertigo, nausea, or headache. Later that evening she developed sudden onset of room spinning
sensation with nausea and dry heaves. This prompted her to go to the emergency department. Her symptoms gradually improved after arriving to the emergency department following treatment with antiemetics. The patient denied any prior history of
similar episodes and stated that she had no prior history of heart disease or stroke. Patient was subsequently admitted to [facility].
MRI of the brain was negative for acute stroke. Leonardo-Hallpike maneuver was positive for symptoms as well as nystagmus when turning to the right. Clinical scenario suggestive of benign paroxysmal positional vertigo for right posterior canal.
Patient was counseled and advised that best possible treatment is vestibular therapy. Patient could also use Antivert as needed for the time being. Patient was appropriate for discharge after PT evaluation. Her positive troponins and the
indeterminate range and asymptomatic and cardiology recommended continuing with current medications and treatment. Cardiology believe the patient is appropriate for discharge after cardiac catheterization showed no evidence of obstructive coronary
artery disease.
The patient has reached maximal benefit from this hospital stay and is appropriate for discharge at the present time. Patient has been advised to follow-up with her outpatient primary care provider within 1 week and to follow-up with her
lead painter in the outpatient setting. Patient should continue her current home medication regimen and use Antivert until her BPPV is resolved with or without the use of physical therapy assistance.
Discharge Plan
-
Patient Disposition: Home (Routine Discharge)
Discharge Diagnosis/Procedures: BPPV, Nonspecific troponin elevation with Focal lateral wall motion abnormality of unclear significance with EF 57%. No evidence of SCAD on cardiac catheterization
Diet: Regular
Activity: As tolerated
Driving Restrictions: Not until seen by your Dr
Bathing Restrictions: None
Other Services: PT
Stand Alone Forms: DC Instructions- Cath/EP Lab
Referrals:
NONE,* [Family Provider] - in less than 1 week
Prescriptions:
New
meclizine 25 mg Tablet
25 mg PO Q8HPRN PRN (Reason: Dizziness) Qty: 15 0RF
aspirin 81 mg Tablet,Chewable
81 mg PO DAILY Qty: 30 0RF
ondansetron HCl 4 mg tablet
4 mg PO Q8H PRN (Reason: nausea and vomiting) 5 Days Qty: 15 0RF
Continued
paroxetine HCl 10 MG tablet
10 mg PO DAILY
albuterol sulfate [Proventil HFA] 90 MCG/PUFF HFA aerosol inhaler
1 - 2 puff inhalation Q4HPRN PRN (Reason: prn for wheezing) Qty: 1 1RF
Discharge Orders:
Discharge Patient (As Directed); Ordered 05/02/24
Ordered By: Yuliet Hansen
Discharge Date and Time
Discharge Date/Time: 05/02/24 15:30
Print Language: TAJIK
--- NOTE | 2024-05-02 12:36 | CM ---
Addendum entered by Aurora Mckeon 05/02/24 13:51:
Patient for discharge home with no needs. Patient changed to inpatient status and IMM completed and signed form placed on chart.
Original Note:
Patient seen at bedside with patient and daughter. Patient here as OBS/SEALS patient and form reviewed with patient and signed form placed on chart. Patient daughter with many questions and requested to speak with physician about status. CM
sent TT to resident. Patient states that she lives in [facility]. with in a one story condo. Patient PCP is Dr. Steiner in [place]. Patient uses the [facility] here in [address] while visiting patient daughter. CM will continue to follow for
discharge planning needs.
Plan; home with family no needs at this time.
--- NOTE | 2024-05-02 12:43 | W.PN.UPDATE ---
Update Note
Progress Note Update
Patient without vertigo symptoms most of the activities so far. Did not perform another [place]-Hallpike as she was quite symptomatic yesterday with it. Advised to her that best tx for BPPV is vestibular therapy as an outpatient. Advised to use only
as needed meclizine and Zofran when the symptoms happens.
Cardiac eval now complete including a cardiac catheterization which showed no evidence of obstructive CAD.
Medically stable for dc .
Total time of DC 35 min
--- NOTE | 2024-05-02 16:30 | W.DS.TRANS ---
DC Summary - Psychologist Social
-
Discharge Instructions:
Discharge Diagnosis/Procedures BPPV, Nonspecific troponin elevation with Focal
lateral wall motion abnormality of unclear
significance with EF 57%. No evidence of SCAD
on cardiac catheterization
Diet Regular
Activity As tolerated
Driving Restrictions Not until seen by your Dr
Bathing Restrictions None
Other Services PT
Instructions:
Stand-Alone Forms: DC Instructions- Cath/EP Lab
Changes to Home Medications: Yes
Discharge Medications:
DC Medications w/original date entered in [facility]
albuterol sulfate 90 mcg/actuation aerosol inhaler (Proventil HFA) 1 - 2 puff inhalation Q4HPRN PRN prn for wheezing ##1 01/07/11
paroxetine HCl 10 mg tablet 10 mg PO DAILY 01/07/11
aspirin 81 mg chewable tablet 81 mg PO DAILY #30 tabs 05/02/24
meclizine 25 mg tablet 25 mg PO Q8HPRN PRN Dizziness #15 tabs 05/02/24
ondansetron HCl 4 mg tablet 4 mg PO Q8H PRN nausea and vomiting 5 days #15 tabs 05/02/24
Home Medication Changes
Added:
aspirin 81 mg chewable tablet 81 mg PO DAILY #30 tabs 05/02/24
meclizine 25 mg tablet 25 mg PO Q8HPRN PRN Dizziness #15 tabs 05/02/24
ondansetron HCl 4 mg tablet 4 mg PO Q8H PRN nausea and vomiting 5 days #15 tabs 05/02/24
Pending Results: No
== END 2024-05-02 15:30 | disposition home or self-care (01) | DRG 149 ==
LOC: 4 EAST ACU 12:42
PROVIDERS: Emergency Medicine; Internal Medicine Cardiovascular Disease; Nurse Practitioner; Physician Assistant; ADMITTING PHYSICIAN Hospitalist; ATTENDING PHYSICIAN Internal Medicine; EMERGENCY PHYSICIAN Emergency Medicine; OTHER PHYSICIAN Internal Medicine Cardiovascular Disease
PROC: B2151ZZ Fluoroscopy of Left Heart using Low Osmolar Contrast (ICD-10-PCS; 2024-05-01)
PROC: 4A023N7 Measurement of Cardiac Sampling and Pressure, Left Heart, Percutaneous Approach (ICD-10-PCS; 2024-05-01)
PROC: B2111ZZ Fluoroscopy of Multiple Coronary Arteries using Low Osmolar Contrast (ICD-10-PCS; 2024-05-01)
DX: H81.10 Benign paroxysmal vertigo, unspecified ear (principal); R79.89 Other specified abnormal findings of blood chemistry; F32.A Depression, unspecified; F41.9 Anxiety disorder, unspecified; I10 Essential (primary) hypertension; I34.81 Nonrheumatic mitral (valve) annulus calcification; Z79.82 Long term (current) use of aspirin; R10.11 Right upper quadrant pain
CPT/HCPCS: 70450; 70551; 76700; 80048; 80053; 81003; 83690; 84443; 84484; 85025; 85027; 93005; 93306; 96360; 97112; 97162; 97166; 99285